=== PATIENT | female | born 1960 | race African-American/Black ===

== ENCOUNTER → 2022-12-20 | Day surgery (SDC) | payer OTHER ==
[2022-12-18 11:10] LABS: BASOPHILS % 0.6 % (0.0-1.0); EOSINOPHILS # (AUTO) 0.2 (0.0-0.4); EOSINOPHILS % 3.2 % (0.0-6.0); HEMATOCRIT 38.1 % (34.2-44.1); HEMOGLOBIN 11.9 g/dL (12.0-16.0); LYMPHOCYTES # (AUTO) 2.3 (1.0-3.2); LYMPHOCYTES % 33.2 % (18.0-39.1); MEAN CORPUSCULAR HEMOGLOBIN 31.2 pg (28-32); MEAN CORPUSCULAR HGB CONC 31.2 g/dL (31-35); MONOCYTES # (AUTO) 0.6 (0.2-0.8); MONOCYTES % 9.2 % (4.4-11.3); NEUTROPHILS # (AUTO) 3.7 (2.1-6.9); NEUTROPHILS % 53.5 % (38.7-80.0); PLATELET COUNT 149 x10e3/uL (140-360); RED BLOOD COUNT 3.81 x10e6/uL (3.6-5.1); RED CELL DISTRIBUTION WIDTH 13.3 % (11.7-14.4)
[~2022-12-20] MED LIST: AMBIEN10 MG PO; AMLODIPINE BESY10 MG PO; CLARITIN-D 241 EACH PO; CLONIDINE HCL0.2 MG PO; COREG12.5 MG PO; CRESTOR10 MG PO; EC MATRIXX TAB1 EACH PO; EPHEDRINE SULFATE INJ 50 MG/ML VIAL ONE; GABAPENTIN400 MG PO; HYDROCHLOROTHIA25 MG PO; HYDROCODON-ACE1 EAC9 PO; IRON PO; ISOSORBIDE MONO30 MG PO; KLONOPIN0.5 MG PO; LIDOCAINE HCL 2% LOCAL INJ 5 ML SDV VIAL INJ ONE; LOSARTAN POTASS25 MG PO; METFORMIN HCL500 MG PO; PLAVIX75 MG PO; POVIDONE IODINE 0.05% 0.05 % ML PO ONE; PROPOFOL IV EMULSION 10 MG/ML 20 ML VIAL ONE; QUETIAPINE FUM100 MG PO; RANOLAZINE ER1000 MG PO; SINGULAIR10 MG PO; TYLENOL #3 PO; VIT C PO; VIT D3 PO
[2022-12-20 14:02] LABS: ANION GAP 18.1 mmol/L (8-16); CALCIUM 10.2 mg/dL (8.4-10.2); CREATININE, SERUM 1.26 mg/dL (0.57-1.11); POTASSIUM 4.1 mmol/L (3.5-5.1)
[2022-12-20 16:48] VITALS: TEMP 97.4
[2022-12-20 16:58] VITALS: BP 124/85; PULSE 90; RESP 18; O2SAT 99
== END | disposition home or self-care (01) ==
LOC: OR 12:16
PROVIDERS: ATTEND Internal Medicine Gastroenterology
DX: Z12.11 Encounter for screening for malignant neoplasm of colon (principal); D12.3 Benign neoplasm of transverse colon; D12.4 Benign neoplasm of descending colon; K29.50 Unspecified chronic gastritis without bleeding; K31.A11 Gastric intestinal metaplasia without dysplasia, involving the antrum; K44.9 Diaphragmatic hernia without obstruction or gangrene; K59.00 Constipation, unspecified; K57.30 Diverticulosis of large intestine without perforation or abscess without bleeding; D64.9 Anemia, unspecified; E11.22 Type 2 diabetes mellitus with diabetic chronic kidney disease; I12.9 Hypertensive chronic kidney disease with stage 1 through stage 4 chronic kidney disease, or unspecified chronic kidney disease; N18.4 Chronic kidney disease, stage 4 (severe); R07.9 Chest pain, unspecified; R00.2 Palpitations; I25.2 Old myocardial infarction; J44.9 Chronic obstructive pulmonary disease, unspecified; E78.5 Hyperlipidemia, unspecified; M06.9 Rheumatoid arthritis, unspecified; F41.9 Anxiety disorder, unspecified; F32.A Depression, unspecified; Z01.810 Encounter for preprocedural cardiovascular examination; Z01.812 Encounter for preprocedural laboratory examination; Z79.02 Long term (current) use of antithrombotics/antiplatelets; Z79.84 Long term (current) use of oral hypoglycemic drugs; Z79.899 Other long term (current) drug therapy; Z95.1 Presence of aortocoronary bypass graft; Z95.5 Presence of coronary angioplasty implant and graft; Z80.0 Family history of malignant neoplasm of digestive organs
CPT/HCPCS: 36415 ×2; 43239; 45385; 80048; 82948; 85025; 88305; 88342; 93005; J2001; J2704; 45378; 88304; 88312